=== PATIENT | female | born 1950 | race Caucasian/White ===

== ENCOUNTER 2019-04-24 14:20 | Emergency (ER) | payer MEDICARE ==
[~2019-04-24] VITALS: Ht 162.6 cm; Wt 96.8 kg
[2019-04-24] MEDS ORDERED: METO1TAB32 PO (14:58)
[2019-04-24] MEDS ORDERED: XARE20TA PO (14:58)
[2019-04-24] MEDS ORDERED: ZYLO300T6 PO (14:58)
[2019-04-24] MEDS ORDERED: LOSA100T50 PO (14:58)
[2019-04-24] MEDS ORDERED: AMLO25TA PO (14:58)
[2019-04-24] MEDS ORDERED: PARO30TA3 PO (14:58)
[2019-04-24 16:00] LABS: BASO % 0.3 % (0.0-1.0); EOS # 0.1 10^3/uL (0.0-0.5); EOS % 0.9 % (0.0-3.0); HEMATOCRIT 41.5 % (36.0-47.0); HEMOGLOBIN 13.6 g/dl (12.0-15.5); LYMPH # 2.2 10^3/uL (1.5-5.0); LYMPH % 19.9 % (24.0-44.0); MEAN CORPUSCULAR HEMOGLOBIN 30.2 pg (27.0-33.0); MEAN CORPUSCULAR HGB CONC 32.8 g/dl (32.0-36.5); MONO # 0.5 10^3/uL (0.0-0.8); MONO % 4.6 % (0.0-5.0); NEUTROPHILS % 74.1 % (36.0-66.0); PLATELET COUNT, AUTOMATED 278 10^3/uL (150-450); RED BLOOD COUNT 4.51 10^6/uL (4.00-5.40); WHITE BLOOD COUNT 10.8 10^3/uL (4.0-10.0)
[2019-04-24 16:23] LABS: BLOOD UREA NITROGEN 17 MG/DL (7-18); C REACTIVE PROTEIN QUANTITATIV 0.53 MG/DL (0.00-0.30); CALCIUM LEVEL 9.6 MG/DL (8.8-10.2); CARBON DIOXIDE LEVEL 27 MEQ/L (21-32); CHLORIDE LEVEL 107 MEQ/L (98-107); CREATININE FOR GFR 0.96 MG/DL (0.55-1.30); GLOMERULAR FILTRATION RATE > 60.0 (>45); GLUCOSE, FASTING 107 MG/DL (70-100); POTASSIUM SERUM 4.3 MEQ/L (3.5-5.1); SODIUM LEVEL 142 MEQ/L (136-145)
[2019-04-24 16:42] LABS: ERYTHROCYTE SEDIMENTATION RATE 14 mm/hr (0-30)
--- NOTE | 2019-04-24 16:43 | REP ---
LEFT KNEE, FIVE VIEWS: Five views of the left knee were performed. There is no acute fracture or dislocation seen. A total knee prosthesis is noted in place. No osseous abnormality is seen. There is a large joint effusion. IMPRESSION: Large joint effusion with no acute osseous abnormality. Electronically Signed by Landry Swain MD 04/25/2019 10:48 A
[2019-04-24] MEDS ORDERED: PRED20TA PO (16:57)
[2019-04-24 16:58] VITALS: BP 131/76
== END 2019-04-24 17:30 | disposition home or self-care (01) ==
LOC: M ED 14:20
DX: M25.462 Effusion, left knee (principal); Z96.652 Presence of left artificial knee joint; M10.9 Gout, unspecified; Z79.899 Other long term (current) drug therapy; Z79.01 Long term (current) use of anticoagulants

== ENCOUNTER → 2020-02-20 | Outpatient (CLI) | payer MEDICARE ==
[~2020-02-20] MED LIST: AMLO25TA PO; LOSA100T50 PO; METO1TAB32 PO; PARO30TA3 PO; PRED20TA PO; XARE20TA PO; ZYLO300T6 PO
[2020-02-20 16:23] LABS: C REACTIVE PROTEIN QUANTITATIV < 0.30 MG/DL (0.00-0.30); RHEUMATOID FACTOR QUANT < 10.0 IU/ML (<15.0)
[2020-02-26 11:12] LABS: ANTINUCLEAR ANTIBODIES DIRECT Negative (Negative); HLA-B27 Negative (.)
== END ==
LOC: M LAB 15:04
PROVIDERS: ATTEND Physician Assistant
DX: M47.892 Other spondylosis, cervical region (principal)

== ENCOUNTER → 2020-03-16 | Outpatient (CLI) | payer MEDICARE ==
[2020-06-01 16:26] LABS: HEMATOCRIT 42.6 % (36.0-47.0); MEAN CORPUSCULAR HEMOGLOBIN 30.3 pg (27.0-33.0); MEAN CORPUSCULAR HGB CONC 32.9 g/dl (32.0-36.5); MEAN CORPUSCULAR VOLUME 92.2 fl (80.0-96.0); PLATELET COUNT, AUTOMATED 252 10^3/uL (150-450); RED BLOOD COUNT 4.62 10^6/uL (4.00-5.40); WHITE BLOOD COUNT 6.7 10^3/uL (4.0-10.0)
[2020-06-02 08:13] LABS: BLOOD UREA NITROGEN 21 MG/DL (7-18); CALCIUM LEVEL 9.2 MG/DL (8.8-10.2); CARBON DIOXIDE LEVEL 31 mmol/L (20-29); CHLORIDE LEVEL 106 MEQ/L (98-107); GLOMERULAR FILTRATION RATE > 60.0 (>45); GLUCOSE, FASTING 98 MG/DL (70-100); POTASSIUM SERUM 4.2 MEQ/L (3.5-5.1); SODIUM LEVEL 139 MEQ/L (136-145)
[2020-06-02 08:14] LABS: ALBUMIN 3.7 GM/DL (3.2-5.2); ALT/SGPT 18 IU/L (0-32); BILIRUBIN,TOTAL 0.6 MG/DL (0.2-1.0); CHOLESTEROL LEVEL 214 MG/DL (<200); FREE T4 1.04 NG/DL (0.76-1.46); HDL CHOLESTEROL 55 MG/DL (>40); LDL CHOLESTEROL 123.8 MG/DL (<100); NON-HDL-C 159 MG/DL; TOTAL PROTEIN 7.1 GM/DL (6.4-8.2); TRIGLYCERIDES LEVEL 176 MG/DL (<150); URIC ACID 4.1 MG/DL (2.6-6.0)
[2020-06-02 08:15] LABS: HEMOGLOBIN A1c 5.7 %; MALB URINE SIEMENS 47.7 MG/L
== END ==
LOC: M LAB 11:50
PROVIDERS: ATTEND Physician Assistant
DX: I11.9 Hypertensive heart disease without heart failure (principal); I48.91 Unspecified atrial fibrillation; M1A.9XX0 Chronic gout, unspecified, without tophus (tophi); Z13.220 Encounter for screening for lipoid disorders; Z13.1 Encounter for screening for diabetes mellitus; Z79.899 Other long term (current) drug therapy

== ENCOUNTER → 2020-12-23 | Outpatient (CLI) | payer MEDICARE ==
[2020-12-23 16:09] LABS: HEMATOCRIT 44.4 % (36.0-47.0); HEMOGLOBIN 14.3 g/dl (12.0-15.5); MEAN CORPUSCULAR HEMOGLOBIN 30.2 pg (27.0-33.0); MEAN CORPUSCULAR HGB CONC 32.2 g/dl (32.0-36.5); MEAN CORPUSCULAR VOLUME 93.9 fl (80.0-96.0); PLATELET COUNT, AUTOMATED 269 10^3/uL (150-450); RED BLOOD COUNT 4.73 10^6/uL (4.00-5.40)
[2020-12-23 16:16] LABS: ALBUMIN 3.7 GM/DL (3.2-5.2); ALT/SGPT 16 U/L (12-78); BILIRUBIN,TOTAL 0.6 MG/DL (0.2-1.0); BLOOD UREA NITROGEN 17 MG/DL (7-18); CALCIUM LEVEL 9.3 MG/DL (8.8-10.2); CARBON DIOXIDE LEVEL 30 MEQ/L (21-32); CHLORIDE LEVEL 109 MEQ/L (98-107); CHOLESTEROL LEVEL 219 MG/DL (<200); CREATININE FOR GFR 0.85 MG/DL (0.55-1.30); GLOMERULAR FILTRATION RATE > 60.0 (>45); GLUCOSE, FASTING 108 MG/DL (70-100); HDL CHOLESTEROL 61 MG/DL (>40); LDL CHOLESTEROL 128 MG/DL (<100); NON-HDL-C 158 MG/DL; POTASSIUM SERUM 4.2 MEQ/L (3.5-5.1); SODIUM LEVEL 142 MEQ/L (136-145); TOTAL PROTEIN 7.1 GM/DL (6.4-8.2); TRIGLYCERIDES LEVEL 150 MG/DL (<150); URIC ACID 4.2 MG/DL (2.6-6.0)
== END ==
LOC: M WUC 13:57
PROVIDERS: ATTEND Physician Assistant
DX: I11.9 Hypertensive heart disease without heart failure (principal); E78.2 Mixed hyperlipidemia; M1A.9XX0 Chronic gout, unspecified, without tophus (tophi); I48.91 Unspecified atrial fibrillation

== ENCOUNTER → 2021-03-08 | Outpatient (CLI) | payer MEDICARE ==
[2021-03-08 16:38] LABS: BLOOD UREA NITROGEN 16 MG/DL (7-18); GLOMERULAR FILTRATION RATE > 60.0 (>45)
== END ==
LOC: M LAB 15:43
PROVIDERS: ATTEND Otolaryngology
DX: R22.1 Localized swelling, mass and lump, neck (principal)

== ENCOUNTER → 2021-03-15 | Outpatient (CLI) | payer MEDICARE ==
[~2021-03-15] MED LIST changes: +PROHANCE 279.3MG/ML 15ML VIAL As Ordered ONE; +PROHANCE 279.3MG/ML 5ML VIAL As Ordered ONE
--- NOTE | 2021-03-24 16:30 | REPVR ---
PROCEDURE INFORMATION: Exam: MR Neck Without and With Contrast Exam date and time: 03/15/2021 2:26 PM Age: 70 years old Clinical indication: Mass, lump, or swelling; Other: Neck; Patient HX: Lt sided mass, markers placed; Additional info: Swelling, mass TECHNIQUE: Imaging protocol: MR images of the neck without and with intravenous contrast. Contrast material: PROHANCE; Contrast volume: 17 ml; Contrast route: INTRAVENOUS (IV); COMPARISON: No relevant prior studies available. FINDINGS: Nasopharynx: Unremarkable. Oropharynx: Unremarkable. Hypopharynx: Unremarkable. Larynx: Unremarkable. Submandibular/Parotid glands: Unremarkable. Retropharyngeal space: Unremarkable. Vasculature: Unremarkable. Lymph nodes: No pathologically enlarged lymph nodes. Soft tissues: An ovoid left neck soft tissue fat signal intensity lesion consistent with lipoma measuring 5.2 x 4.2 x 8.6 cm, image 20 series 201, image 24 series 501. Bones/joints: Unremarkable. IMPRESSION: A left neck soft tissue benign lipoma. Electronically signed by: Ángela Ayoub On 03/24/2021 16:30:23 PM
== END ==
LOC: M RAD 13:18
PROVIDERS: ATTEND Otolaryngology
DX: D17.0 Benign lipomatous neoplasm of skin and subcutaneous tissue of head, face and neck (principal)
CPT/HCPCS: 70543; A9576

== ENCOUNTER → 2021-05-15 | Outpatient (CLI) | payer MEDICARE ==
[~2021-05-15] MED LIST changes: +ALLO300T2 PO; +D31000TA2 PO; -PROHANCE 279.3MG/ML 15ML VIAL As Ordered ONE; -PROHANCE 279.3MG/ML 5ML VIAL As Ordered ONE
== END ==
LOC: M LABSMTC 11:49
PROVIDERS: ATTEND Anesthesiology
DX: Z01.818 Encounter for other preprocedural examination (principal); Z11.52 Encounter for screening for COVID-19

== ENCOUNTER 2021-05-20 09:53 | Day surgery (SDC) | payer MEDICARE ==
[~2021-05-20] VITALS: Ht 162.6 cm; Wt 88.9 kg
[~2021-05-20 09:53] MED LIST changes: +NS 1,000 ML IV ONE
[2021-05-20] MEDS ORDERED: propofoL 200 MG/20 ML VIAL As Ordered ONE (11:22)
[2021-05-20] MEDS ORDERED: LIDOCAINE 2% 100MG/5ML SDV (FOR ANES.) As Ordered ONE (11:22)
--- NOTE | 2021-05-20 12:35 | ROOR ---
Patient Name: Mariela Powell Procedure Date: 05/20/2021 12:04 PM Date of : 1950 Age: 70 Room: [facility] Gender: Female Note Status: Finalized Procedure: Colonoscopy Indications: High risk colon cancer surveillance: Personal history of colonic polyps Providers: Favio Castellano MD Referring MD: Salma Hurtado Requesting Provider: Medicines: Monitored Anesthesia Care Complications: No immediate complications. Procedure: Pre-Anesthesia Assessment: - Prior to the procedure, a History and Physical was performed, and patient medications and allergies were reviewed. The patient is competent. The risks and benefits of the procedure and the sedation options and risks were discussed with the patient. All questions were answered and informed consent was obtained. Patient identification and proposed procedure were verified by the physician, the nurse and the anesthesiologist in the procedure room. Mental Status Examination: alert and oriented. Airway Examination: normal oropharyngeal airway and neck mobility. Respiratory Examination: clear to auscultation. CV Examination: normal. Prophylactic Antibiotics: The patient does not require prophylactic antibiotics. Prior Anticoagulants: The patient has taken no previous anticoagulant or antiplatelet agents. ASA Grade Assessment: II - A patient with mild systemic disease. After reviewing the risks and benefits, the patient was deemed in satisfactory condition to undergo the procedure. The anesthesia plan was to use monitored anesthesia care (MAC). Immediately prior to administration of medications, the patient was re-assessed for adequacy to receive sedatives. The heart rate, respiratory rate, oxygen saturations, blood pressure, adequacy of pulmonary ventilation, and response to care were monitored throughout the procedure. The physical status of the patient was re-assessed after the procedure. The Colonoscope was introduced through the anus and advanced to the terminal ileum, with identification of the appendiceal orifice and IC valve. The colonoscopy was performed without difficulty. The patient tolerated the procedure well. The quality of the bowel preparation was good. The terminal ileum, ileocecal valve, appendiceal orifice, and rectum were photographed. Scope insertion time was 1 minute. Scope withdrawal time was 8 minutes. The total duration of the procedure was 10 minutes. Findings: The perianal and digital rectal examinations were normal. The terminal ileum appeared normal. Six sessile polyps were found in the recto-sigmoid colon, transverse colon and ascending colon. The polyps were 3 to 6 mm in size. These polyps were removed with a cold snare. Resection and retrieval were complete. Verification of patient identification for the specimen was done by the physician and nurse using the patient's name, date and medical record number. Estimated blood loss was minimal. Multiple small and large-mouthed diverticula were found in the sigmoid colon. There was no evidence of diverticular bleeding. Non-bleeding external and internal hemorrhoids were found during retroflexion. The hemorrhoids were medium-sized. Impression: - The examined portion of the ileum was normal. - Six 3 to 6 mm polyps at the recto-sigmoid colon, in the transverse colon and in the ascending colon, removed with a cold snare. Resected and retrieved. - Moderate diverticulosis in the sigmoid colon. There was no evidence of diverticular bleeding. - Non-bleeding external and internal hemorrhoids. Recommendation: - Patient has a contact number available for emergencies. The signs and symptoms of potential delayed complications were discussed with the patient. Return to normal activities tomorrow. Written discharge instructions were provided to the patient. - High fiber diet. - Continue present medications. - Await pathology results. - Repeat colonoscopy in 3 - 5 years for surveillance based on pathology results. - Telephone GI clinic for pathology results in 2 weeks. - Return to GI clinic if persistent symptoms or new symptoms. - Return to primary care physician. Procedure Code(s): --- Professional --- 25929, Colonoscopy, flexible; with removal of tumor(s), polyp(s), or other lesion(s) by snare technique Diagnosis Code(s): --- Professional --- Z86.010, Personal history of colonic polyps K64.8, Other hemorrhoids K63.5, Polyp of colon K57.30, Diverticulosis of large intestine without perforation or abscess without bleeding CPT copyright 2019 [employer]. All rights reserved. The codes documented in this report are preliminary and upon nutrition club ambassador review may be revised to meet current compliance requirements. Favio Castellano MD Favio Castellano MD 05/20/2021 12:35:06 PM Electronically signed by Favio Castellano MD Number of Addenda: 0 Note Initiated On: 05/20/2021 12:04 PM Estimated Blood Loss: Estimated blood loss was minimal.
[2021-05-20 12:55] VITALS: BP 139/76
== END 2021-05-20 13:01 | disposition home or self-care (01) ==
LOC: M OPP 09:53
PROVIDERS: ATTEND Internal Medicine Gastroenterology
DX: Z12.11 Encounter for screening for malignant neoplasm of colon (principal); Z86.010 Personal history of colon polyps; D12.6 Benign neoplasm of colon, unspecified; K57.30 Diverticulosis of large intestine without perforation or abscess without bleeding; K64.8 Other hemorrhoids; I48.91 Unspecified atrial fibrillation; Z79.899 Other long term (current) drug therapy; Z87.891 Personal history of nicotine dependence

== ENCOUNTER → 2021-10-06 | Outpatient (CLI) | payer MEDICARE ==
[~2021-10-06] MED LIST changes: +LOSA100T45 PO; -LOSA100T50 PO; -NS 1,000 ML IV ONE
[2021-10-06 19:32] LABS: BASO % 0.5 % (0.0-1.0); EOS # 0.2 10^3/uL (0.0-0.5); EOS % 2.4 % (0.0-3.0); HEMATOCRIT 44.5 % (36.0-47.0); HEMOGLOBIN 14.3 g/dl (12.0-15.5); LYMPH # 2.9 10^3/uL (1.5-5.0); LYMPH % 34.8 % (24.0-44.0); MEAN CORPUSCULAR HEMOGLOBIN 29.7 pg (27.0-33.0); MEAN CORPUSCULAR HGB CONC 32.1 g/dl (32.0-36.5); MEAN CORPUSCULAR VOLUME 92.3 fl (80.0-96.0); MONO # 0.5 10^3/uL (0.0-0.8); MONO % 5.9 % (2.0-8.0); NEUTROPHILS # 4.7 10^3/uL (1.5-8.5); NEUTROPHILS % 56.2 % (36.0-66.0); PLATELET COUNT, AUTOMATED 304 10^3/uL (150-450); RED BLOOD COUNT 4.82 10^6/uL (4.00-5.40); WHITE BLOOD COUNT 8.3 10^3/uL (4.0-10.0)
[2021-10-06 19:49] LABS: ALBUMIN 3.6 GM/DL (3.2-5.2); ALT/SGPT 19 U/L (12-78); BILIRUBIN,TOTAL 0.5 MG/DL (0.2-1.0); BLOOD UREA NITROGEN 13 MG/DL (7-18); CALCIUM LEVEL 9.1 MG/DL (8.8-10.2); CARBON DIOXIDE LEVEL 29 MEQ/L (21-32); CHLORIDE LEVEL 109 MEQ/L (98-107); CHOLESTEROL LEVEL 208 MG/DL (<200); CHOLESTEROL RISK RATIO 3.525 (<5); FREE T4 0.96 NG/DL (0.76-1.46); GLOMERULAR FILTRATION RATE > 60.0 (>45); GLUCOSE, FASTING 97 MG/DL (70-100); HDL CHOLESTEROL 59 MG/DL (>40); LDL CHOLESTEROL 129 MG/DL (<100); NON-HDL-C 149 MG/DL; POTASSIUM SERUM 4.5 MEQ/L (3.5-5.1); SODIUM LEVEL 141 MEQ/L (136-145); TRIGLYCERIDES LEVEL 102 MG/DL (<150); URIC ACID 4.3 MG/DL (2.6-6.0)
[2021-10-06 19:53] LABS: TOTAL 25(OH) VITAMIN D 23.1 NG/ML (30.0-100.0)
[2021-10-06 19:54] LABS: MAU/CREAT RATIO 61.2 MCG/MG (0.0-30.0)
== END ==
LOC: M WUC 14:41
PROVIDERS: ATTEND Physician Assistant
DX: I11.9 Hypertensive heart disease without heart failure (principal); I48.91 Unspecified atrial fibrillation; M1A.9XX0 Chronic gout, unspecified, without tophus (tophi); E78.2 Mixed hyperlipidemia; F41.8 Other specified anxiety disorders

== ENCOUNTER → 2021-11-08 | Outpatient (CLI) | payer MEDICARE ==
[~2021-11-08] MED LIST changes: -D31000TA2 PO; +VITA100093 PO
== END ==
LOC: M WHC 12:25
PROVIDERS: ATTEND Physician Assistant
DX: Z12.31 Encounter for screening mammogram for malignant neoplasm of breast (principal); Z13.820 Encounter for screening for osteoporosis; M81.0 Age-related osteoporosis without current pathological fracture

== ENCOUNTER → 2022-11-02 | Outpatient (REF) | payer MEDICARE ==
[2022-11-02 13:52] LABS: APPEARANCE, URINE HAZY (CLEAR); BACTERIA, URINE AUTO 2+ (NEGATIVE); BILIRUBIN, URINE AUTO NEGATIVE (NEGATIVE); BLOOD, URINE BLOOD 1+ (NEGATIVE); COLOR, URINE YELLOW (YELLOW); GLUCOSE, URINE (UA) AUTO NEGATIVE (NEGATIVE); KETONE, URINE AUTO NEGATIVE (NEGATIVE); LEUKOCYTE ESTERASE, URINE AUTO NEGATIVE (NEGATIVE); MUCUS, URINE SMALL (NEGATIVE); NITRITE, URINE AUTO NEGATIVE (NEGATIVE); PROTEIN, URINE AUTO NEGATIVE (NEGATIVE); RBC, URINE AUTO 4 /HPF (0-3); SPECIFIC GRAVITY URINE AUTO 1.015 (1.002-1.035); SQUAMOUS EPITHELIAL CELL UR AU 1 /HPF (0-6); UROBILINOGEN, URINE AUTO 0.2 mg/dL (0.0-2.0); WBC, URINE AUTO 2 /HPF (0-3)
== END ==
LOC: M SFHCADAM 10:57
PROVIDERS: ATTEND Family Medicine
DX: R30.0 Dysuria (principal)

== ENCOUNTER → 2022-11-03 | Outpatient (CLI) | payer MEDICARE ==
[2022-11-03 13:12] LABS: HEMATOCRIT 44.9 % (36.0-47.0); HEMOGLOBIN 14.5 g/dl (12.0-15.5); MEAN CORPUSCULAR HEMOGLOBIN 30.8 pg (27.0-33.0); MEAN CORPUSCULAR HGB CONC 32.3 g/dl (32.0-36.5); MEAN CORPUSCULAR VOLUME 95.3 fl (80.0-96.0); PLATELET COUNT, AUTOMATED 293 10^3/uL (150-450); RED BLOOD COUNT 4.71 10^6/uL (4.00-5.40); WHITE BLOOD COUNT 9.1 10^3/uL (4.0-10.0)
[2022-11-03 13:22] LABS: INR 1.77; PROTHROMBIN TIME 20.9 SECONDS (12.5-14.5)
[2022-11-03 13:31] LABS: ERYTHROCYTE SEDIMENTATION RATE 16 mm/hr (0-30)
[2022-11-03 13:40] LABS: ALBUMIN 3.6 G/DL (3.2-5.2); ALKALINE PHOSPHATASE 73 U/L (46-116); ALT/SGPT 16 U/L (7.0-40); AST/SGOT 17 U/L (<34); BILIRUBIN,TOTAL 0.8 MG/DL (0.3-1.2); BLOOD UREA NITROGEN 15 MG/DL (9-23); CALCIUM LEVEL 9.3 MG/DL (8.3-10.6); CARBON DIOXIDE LEVEL 32 MMOL/L (20-31); CHLORIDE LEVEL 106 MMOL/L (98-107); CREATININE FOR GFR 0.79 MG/DL (0.55-1.30); GLOMERULAR FILTRATION RATE > 60.0 (>39); GLUCOSE, FASTING 97 MG/DL (74-106); POTASSIUM SERUM 4.4 MMOL/L (3.5-5.1); SODIUM LEVEL 142 MMOL/L (136-145); TOTAL PROTEIN 6.6 G/DL (5.7-8.2)
== END ==
LOC: M LAB 12:22 → M RAD 12:22
PROVIDERS: ATTEND Orthopaedic Surgery
DX: Z01.818 Encounter for other preprocedural examination (principal)

== ENCOUNTER → 2023-02-06 | Outpatient (CLI) | payer MEDICARE ==
[~2023-02-06] MED LIST changes: -LOSA100T45 PO; +LOSA100T46 PO
== END ==
LOC: M WHC 13:44
PROVIDERS: ATTEND Physician Assistant
DX: Z12.31 Encounter for screening mammogram for malignant neoplasm of breast (principal)

== ENCOUNTER → 2023-06-19 | Outpatient (REF) | payer MEDICARE ==
[2023-06-19 17:10] LABS: HEMATOCRIT 43.3 % (36.0-47.0); HEMOGLOBIN 14.2 g/dl (12.0-15.5); MEAN CORPUSCULAR HEMOGLOBIN 29.9 pg (27.0-33.0); MEAN CORPUSCULAR HGB CONC 32.8 g/dl (32.0-36.5); MEAN CORPUSCULAR VOLUME 91.2 fl (80.0-96.0); PLATELET COUNT, AUTOMATED 272 10^3/uL (150-450); RED BLOOD COUNT 4.75 10^6/uL (4.00-5.40); WHITE BLOOD COUNT 8.1 10^3/uL (4.0-10.0)
[2023-06-19 17:49] LABS: ALBUMIN 3.5 G/DL (3.2-5.2); ALKALINE PHOSPHATASE 68 U/L (46-116); ALT/SGPT 12 U/L (7.0-40); AST/SGOT 16 U/L (<34); BILIRUBIN,TOTAL 0.7 MG/DL (0.3-1.2); BLOOD UREA NITROGEN 17 MG/DL (9-23); CALCIUM LEVEL 9.5 MG/DL (8.3-10.6); CARBON DIOXIDE LEVEL 28 MMOL/L (20-31); CHLORIDE LEVEL 106 MMOL/L (98-107); CHOLESTEROL LEVEL 210 MG/DL (<200); CHOLESTEROL RISK RATIO 3.29 (<5); CREATININE FOR GFR 0.89 MG/DL (0.55-1.30); GLOMERULAR FILTRATION RATE > 60.0 (>39); GLUCOSE, FASTING 102 MG/DL (74-106); HDL CHOLESTEROL 63.8 MG/DL (>40); LDL CHOLESTEROL 123.4 MG/DL (<100); MAGNESIUM LEVEL 1.9 MG/DL (1.8-2.4); NON-HDL-C 146.2 MG/DL; POTASSIUM SERUM 4.6 MMOL/L (3.5-5.1); SODIUM LEVEL 143 MMOL/L (136-145); TOTAL PROTEIN 6.7 G/DL (5.7-8.2); TRIGLYCERIDES LEVEL 114 MG/DL (<150)
== END ==
LOC: M WUC 16:17 → M LAB REF 16:17
PROVIDERS: ATTEND Physician Assistant
DX: I48.21 Permanent atrial fibrillation (principal); I11.9 Hypertensive heart disease without heart failure; Z13.220 Encounter for screening for lipoid disorders

== ENCOUNTER → 2023-10-10 | Outpatient (CLI) | payer MEDICARE | LOC: M SLEEP HO 11:09 | PROVIDERS: ATTEND Internal Medicine Critical Care Medicine | DX: G47.30 Sleep apnea, unspecified (principal) ==

== ENCOUNTER → 2023-10-20 | Outpatient (CLI) | payer MEDICARE | LOC: M CARPUL 09:07 | PROVIDERS: ATTEND Internal Medicine Critical Care Medicine | DX: I27.20 Pulmonary hypertension, unspecified (principal) ==

== ENCOUNTER → 2024-02-01 | Outpatient (CLI) | payer MEDICARE | LOC: M SLEEP 20:00 | PROVIDERS: ATTEND Internal Medicine Critical Care Medicine | DX: G47.61 Periodic limb movement disorder (principal) ==

== ENCOUNTER → 2024-02-05 | Outpatient (CLI) | payer MEDICARE ==
[2024-02-05 12:42] LABS: BASO % 0.3 % (0.0-1.0); EOS # 0.2 10^3/uL (0.0-0.5); EOS % 2.2 % (0.0-3.0); HEMATOCRIT 41.6 % (36.0-47.0); HEMOGLOBIN 13.6 g/dl (12.0-15.5); LYMPH # 2.5 10^3/uL (1.5-5.0); LYMPH % 33.2 % (24.0-44.0); MEAN CORPUSCULAR HEMOGLOBIN 29.9 pg (27.0-33.0); MEAN CORPUSCULAR HGB CONC 32.7 g/dl (32.0-36.5); MEAN CORPUSCULAR VOLUME 91.4 fl (80.0-96.0); MONO # 0.6 10^3/uL (0.0-0.8); MONO % 7.5 % (2.0-8.0); NEUTROPHILS # 4.3 10^3/uL (1.5-8.5); NEUTROPHILS % 56.4 % (36.0-66.0); PLATELET COUNT, AUTOMATED 263 10^3/uL (150-450); RED BLOOD COUNT 4.55 10^6/uL (4.00-5.40); WHITE BLOOD COUNT 7.6 10^3/uL (4.0-10.0)
[2024-02-05 13:02] LABS: HEMOGLOBIN A1c 5.6 % (4.0-6.0)
[2024-02-05 13:23] LABS: BLOOD UREA NITROGEN 20 MG/DL (9-23); CALCIUM LEVEL 9.4 MG/DL (8.3-10.6); CARBON DIOXIDE LEVEL 29 MMOL/L (20-31); CHLORIDE LEVEL 107 MMOL/L (98-107); CHOLESTEROL LEVEL 197 MG/DL (<200); CHOLESTEROL RISK RATIO 3.33 (<5); CREATININE FOR GFR 0.89 MG/DL (0.55-1.30); FREE T4 1.13 NG/DL (0.89-1.76); GLOMERULAR FILTRATION RATE > 60.0 (>39); GLUCOSE, FASTING 98 MG/DL (74-106); LDL CHOLESTEROL 116.6 MG/DL (<100); POTASSIUM SERUM 4.3 MMOL/L (3.5-5.1); SODIUM LEVEL 140 MMOL/L (136-145); TRIGLYCERIDES LEVEL 107 MG/DL (<150)
[2024-02-05 13:24] LABS: THYROID STIMULATING HORMONE 3.286 uIU/ML (0.55-4.78); TOTAL 25(OH) VITAMIN D 29.6 NG/ML (20.0-100.0)
== END ==
LOC: M WUC 10:00
PROVIDERS: ATTEND Physician Assistant
DX: I11.9 Hypertensive heart disease without heart failure (principal); I48.91 Unspecified atrial fibrillation; F41.8 Other specified anxiety disorders; E78.2 Mixed hyperlipidemia

== ENCOUNTER → 2024-03-12 | Outpatient (CLI) | payer MEDICARE ==
[2024-03-12 14:20] LABS: HEMATOCRIT 42.9 % (36.0-47.0); HEMOGLOBIN 13.9 g/dl (12.0-15.5); MEAN CORPUSCULAR HEMOGLOBIN 30.3 pg (27.0-33.0); MEAN CORPUSCULAR HGB CONC 32.4 g/dl (32.0-36.5); MEAN CORPUSCULAR VOLUME 93.5 fl (80.0-96.0); PLATELET COUNT, AUTOMATED 249 10^3/uL (150-450); RED BLOOD COUNT 4.59 10^6/uL (4.00-5.40); WHITE BLOOD COUNT 7.5 10^3/uL (4.0-10.0)
[2024-03-12 14:34] LABS: ALBUMIN 3.6 G/DL (3.2-5.2); BLOOD UREA NITROGEN 19 MG/DL (9-23); CALCIUM LEVEL 9.4 MG/DL (8.3-10.6); CARBON DIOXIDE LEVEL 26 MMOL/L (20-31); CHLORIDE LEVEL 107 MMOL/L (98-107); CREATININE FOR GFR 0.78 MG/DL (0.55-1.30); GLOMERULAR FILTRATION RATE > 60.0 (>39); GLUCOSE, FASTING 128 MG/DL (74-106); IRON (FE) 97 UG/DL (50-170); MAGNESIUM LEVEL 1.9 MG/DL (1.8-2.4); PERCENT SATURATION 27.6 % (13.2-45.0); POTASSIUM SERUM 4.1 MMOL/L (3.5-5.1); SODIUM LEVEL 140 MMOL/L (136-145); TOTAL IRON BINDING CAPACITY 351 UG/DL (250-425)
[2024-03-12 14:36] LABS: FREE T4 1.11 NG/DL (0.89-1.76); THYROID STIMULATING HORMONE 2.636 uIU/ML (0.55-4.78)
== END ==
LOC: M WUC 10:41
PROVIDERS: ATTEND Internal Medicine Critical Care Medicine
DX: G47.61 Periodic limb movement disorder (principal); D50.9 Iron deficiency anemia, unspecified; E07.9 Disorder of thyroid, unspecified

== ENCOUNTER → 2024-04-20 | Outpatient (REF) | payer MEDICARE | LOC: M WUC 18:50 | PROVIDERS: ATTEND Registered Nurse | DX: N39.0 Urinary tract infection, site not specified (principal) ==

== ENCOUNTER → 2024-05-30 | Outpatient (REF) | payer MEDICARE | LOC: M LAB REF 16:22 | PROVIDERS: ATTEND Student in an Organized Health Care Education/Training Program | DX: R30.0 Dysuria (principal) ==

== ENCOUNTER → 2024-08-26 | Outpatient (CLI) | payer MEDICARE | LOC: M WHC 14:21 | PROVIDERS: ATTEND Physician Assistant | DX: Z12.31 Encounter for screening mammogram for malignant neoplasm of breast (principal) ==

== ENCOUNTER → 2024-10-29 | Outpatient (CLI) | payer MEDICARE ==
[2024-10-29 16:04] LABS: HEMATOCRIT 45.6 % (36.0-47.0); HEMOGLOBIN 14.6 g/dl (12.0-15.5); MEAN CORPUSCULAR HEMOGLOBIN 29.5 pg (27.0-33.0); MEAN CORPUSCULAR VOLUME 92.1 fl (80.0-96.0); PLATELET COUNT, AUTOMATED 265 10^3/uL (150-450); RED BLOOD COUNT 4.95 10^6/uL (4.00-5.40)
[2024-10-29 16:35] LABS: ALBUMIN 3.6 G/DL (3.2-5.2); ALKALINE PHOSPHATASE 73 U/L (35-104); ALT/SGPT 15 U/L (7.0-40); AST/SGOT 19 U/L (<34); BILIRUBIN,TOTAL 0.7 MG/DL (0.3-1.2); BLOOD UREA NITROGEN 15 MG/DL (9-23); CALCIUM LEVEL 9.3 MG/DL (8.3-10.6); CARBON DIOXIDE LEVEL 28 MMOL/L (20-31); CHLORIDE LEVEL 107 MMOL/L (98-107); CHOLESTEROL LEVEL 197 MG/DL (<200); CHOLESTEROL RISK RATIO 3.52 (<5); CREATININE FOR GFR 0.85 MG/DL (0.55-1.30); GLOMERULAR FILTRATION RATE > 60.0 (>39); GLUCOSE, FASTING 97 MG/DL (74-106); HDL CHOLESTEROL 55.9 MG/DL (>40); LDL CHOLESTEROL 112.5 MG/DL (<100); NON-HDL-C 141.1 MG/DL; POTASSIUM SERUM 4.4 MMOL/L (3.5-5.1); SODIUM LEVEL 145 MMOL/L (136-145); TOTAL PROTEIN 7.1 G/DL (5.7-8.2); TRIGLYCERIDES LEVEL 143 MG/DL (<150)
== END ==
LOC: M WUC 12:49
PROVIDERS: ATTEND Physician Assistant
DX: Z13.220 Encounter for screening for lipoid disorders (principal); I11.9 Hypertensive heart disease without heart failure; I48.21 Permanent atrial fibrillation

== ENCOUNTER 2024-11-15 08:39 | Day surgery (SDC) | payer MEDICARE ==
[~2024-11-15] VITALS: Ht 162.6 cm; Wt 89.3 kg
[~2024-11-15 08:39] MED LIST changes: +LIDOCAINE 2% 100MG/5ML SDV (FOR ANES.) As Ordered ONE; +PROA1AER2 INH; +propofoL 200 MG/20 ML VIAL As Ordered ONE
[2024-11-15 10:31] VITALS: TEMP 97.4
[2024-11-15 10:46] VITALS: BP 121/74; O2SAT 97
== END 2024-11-15 11:00 | disposition home or self-care (01) ==
LOC: M OPP 08:39
PROVIDERS: ATTEND Internal Medicine Gastroenterology
DX: D12.4 Benign neoplasm of descending colon (principal); K57.30 Diverticulosis of large intestine without perforation or abscess without bleeding; K64.8 Other hemorrhoids; Z86.0100 Personal history of colon polyps, unspecified; I48.91 Unspecified atrial fibrillation; Z79.01 Long term (current) use of anticoagulants; Z79.899 Other long term (current) drug therapy

== ENCOUNTER → 2025-03-03 | Outpatient (CLI) | payer MEDICARE ==
[~2025-03-03] MED LIST changes: -LIDOCAINE 2% 100MG/5ML SDV (FOR ANES.) As Ordered ONE; -propofoL 200 MG/20 ML VIAL As Ordered ONE
[2025-03-03 13:55] LABS: BASO # 0.0 10^3/uL (0.0-0.2); BASO % 0.3 % (0.0-1.0); EOS # 0.2 10^3/uL (0.0-0.5); EOS % 2.3 % (0.0-3.0); LYMPH # 2.3 10^3/uL (1.5-5.0); LYMPH % 29.8 % (24.0-44.0); MONO # 0.5 10^3/uL (0.0-0.8); MONO % 6.9 % (2.0-8.0); NEUTROPHILS # 4.7 10^3/uL (1.5-8.5); NEUTROPHILS % 60.4 % (36.0-66.0); PLATELET COUNT, AUTOMATED 255 10^3/uL (150-450)
[2025-03-03 13:59] LABS: TOTAL 25(OH) VITAMIN D 33.1 NG/ML (20.0-100.0)
[2025-03-03 14:00] LABS: FREE T4 1.02 NG/DL (0.89-1.76)
[2025-03-03 14:02] LABS: ALT/SGPT 21.0 U/L (7.0-40); AST/SGOT 24.0 U/L (<34); CALCIUM LEVEL 9.1 MG/DL (8.3-10.6); CARBON DIOXIDE LEVEL 27.0 MMOL/L (20-31); CHLORIDE LEVEL 105.0 MMOL/L (98-107); CHOLESTEROL LEVEL 201.0 MG/DL (<200); CHOLESTEROL RISK RATIO 3.52 (<5); CREATININE FOR GFR 0.77 MG/DL (0.55-1.30); GLOMERULAR FILTRATION RATE 81.9 (>39); LDL CHOLESTEROL 119.1 MG/DL (<100); NON-HDL-C 143.9 MG/DL; POTASSIUM SERUM 4.2 MMOL/L (3.5-5.1); SODIUM LEVEL 143.0 MMOL/L (136-145); TRIGLYCERIDES LEVEL 124.0 MG/DL (<150)
[2025-03-03 14:12] LABS: ESTIMATED AVERAGE GLUCOSE 120.0 MG/DL (60-110)
== END ==
LOC: M WUC 11:27
PROVIDERS: ATTEND Physician Assistant
DX: J30.89 Other allergic rhinitis (principal); I11.9 Hypertensive heart disease without heart failure; I48.91 Unspecified atrial fibrillation; E55.9 Vitamin D deficiency, unspecified; E78.2 Mixed hyperlipidemia; Z79.899 Other long term (current) drug therapy

== ENCOUNTER → 2025-06-04 | Outpatient (CLI) | payer MEDICARE ==
[~2025-06-04] MED LIST changes: +PROHANCE 279.3MG/ML 15ML VIAL ONE; +PROHANCE 279.3MG/ML 5ML VIAL ONE
== END ==
LOC: M PLAIMG 13:17
PROVIDERS: ATTEND Otolaryngology
DX: D17.0 Benign lipomatous neoplasm of skin and subcutaneous tissue of head, face and neck (principal)
CPT/HCPCS: 70543; A9576

== ENCOUNTER → 2025-07-11 | Outpatient (REF) | payer MEDICARE ==
[~2025-07-11] MED LIST changes: -PROHANCE 279.3MG/ML 15ML VIAL ONE; -PROHANCE 279.3MG/ML 5ML VIAL ONE
== END ==
LOC: M LAB REF 16:49
PROVIDERS: ATTEND Physician Assistant
DX: R30.0 Dysuria (principal)